=== PATIENT | male | born 1995 | race African-American/Black ===

== ENCOUNTER 2017-08-21 10:00 | Emergency (ER) | payer OTHER ==
[2017-08-21] MEDS ORDERED: MAG HYDROX/AL HYDROX/SIMETH SUSP 30 ML UDCUP PO ONE (10:14)
[2017-08-21 10:29] LABS: ABSOLUTE EOSINOPHILS # (AUTO) 0.1 10^3/uL (0.0-0.6); ABSOLUTE LYMPHOCYTES (AUTO) 2.1 10^3/uL (0.5-4.7); ABSOLUTE MONOCYTES (AUTO) 0.3 10^3/uL (0.1-1.4); ABSOLUTE NEUT (AUTO) 1.4 10^3/uL (1.7-8.2); BASOPHILS % (AUTO) 0.4 % (0-2); HEMATOCRIT 44.6 % (37.9-51.0); HEMOGLOBIN 15.3 g/dL (13.5-17.0); LYMPHOCYTES % (AUTO) 54.3 % (13-45); MEAN CORPUSCULAR HEMOGLOBIN 28.7 pg (27.0-33.4); MEAN CORPUSCULAR HGB CONC 34.4 g/dL (32.0-36.0); MEAN CORPUSCULAR VOLUME 84 fl (80-97); MONOCYTES % (AUTO) 6.9 % (3-13); PLATELET COUNT 160 10^3/uL (150-450); RED BLOOD COUNT 5.34 10^6/uL (4.35-5.55); RED CELL DISTRIBUTION WIDTH 13.2 % (11.5-14.0); SEGMENTED NEUTROPHILS % (AUTO) 36.4 % (42-78); TOTAL CELLS COUNTED % (AUTO) 100 %; WHITE BLOOD COUNT 3.8 10^3/uL (4.0-10.5)
[2017-08-21] MEDS ORDERED: ONDANSETRON 4 MG TAB.RAPDIS PO ONE (10:58)
[2017-08-21 10:59] LABS: ALANINE AMINOTRANSFERASE 45 U/L (21-72); ALBUMIN 4.4 g/dL (3.5-5.0); ALKALINE PHOSPHATASE 55 U/L (38-126); ANION GAP 9 (5-19); ASPARTATE AMINO TRANSFERASE 28 U/L (17-59); BILIRUBIN,DIRECT 0.3 mg/dL (0.0-0.4); BILIRUBIN,TOTAL 0.4 mg/dL (0.2-1.3); BLOOD UREA NITROGEN 16 mg/dL (7-20); CALCIUM 9.6 mg/dL (8.4-10.2); CARBON DIOXIDE 30 mmol/L (22-30); CHLORIDE 105 mmol/L (98-107); GLUCOSE 91 mg/dL (75-110); LIPASE 106.2 U/L (23-300); POTASSIUM 4.5 mmol/L (3.6-5.0); SODIUM 144.3 mmol/L (137-145); TOTAL PROTEIN 7.3 g/dL (6.3-8.2)
--- NOTE | 2017-08-21 11:02 | ER Document Report ---
ED Medical Screen (RME) - General Chief Complaint: Epigastric Pain Stated Complaint: STOMACH ACHE Time Seen by Provider: 08/21/17 10:14 Notes: Patient states that for several days he has had epigastric pain with bloating. He states he has tried nausea pills [id number] that have relieved his symptoms. Patient appears to have epigastric and right upper quadrant pain on exam. No vomiting or diarrhea. Initially patient was given some Maalox in triage but this did not relieve his symptoms. TRAVEL OUTSIDE OF THE [place] IN LAST 30 DAYS: No - Related Data Allergies/Adverse Reactions: No Known Allergies Allergy (Unverified 08/21/17 10:02) Past Medical History - Social History Chew tobacco use (# tins/day): No Frequency of alcohol use: Occasional Drug Abuse: Marijuana Renal/ Medical History: Denies: Hx Peritoneal Dialysis Past Surgical History: Reports: Hx Appendectomy, Hx Orthopedic Surgery Physical Exam - Vital signs Vitals: Temp Pulse Resp BP Pulse Ox 97.5 F 53 L 16 145/77 H 100 08/21/17 10:04 08/21/17 10:04 08/21/17 10:04 08/21/17 10:04 08/21/17 10:04 Course - Vital Signs Vital signs: Temp Pulse Resp BP Pulse Ox 97.5 F 53 L 16 145/77 H 100 08/21/17 10:04 08/21/17 10:04 08/21/17 10:04 08/21/17 10:04 08/21/17 10:04 - Laboratory Result Diagrams: 08/21/17 10:20 08/21/17 10:20 Laboratory results interpreted by me: 08/21/17 10:20 WBC 3.8 L Seg Neutrophils % 36.4 L Lymphocytes % 54.3 H Absolute Neutrophils 1.4 L
--- NOTE | 2017-08-21 11:45 | RADIOLOGY REPORT (SQ) ---
EXAM DESCRIPTION: U/S ABDOMEN LIMITED W/O DOP COMPLETED DATE/TIME: 08/21/2017 11:35 am REASON FOR STUDY: ruq pain COMPARISON: None. TECHNIQUE: Dynamic and static grayscale images acquired of the abdomen and recorded on PACS. Additio nal selected color Doppler and spectral images recorded. LIMITATIONS: Study is limited due to overlying bowel gas P FINDINGS: PANCREAS: The pancreas could not be visualized overlying bowel gas LIVER: No masses. Echotexture normal. LIVER VASCULATURE: Normal directional flow of the main portal vein. GALLBLADDER: No stones. Normal wall thickness. No pericholecystic fluid. ULTRASOUND-DETECTED KIRBY'S SIGN: Negative. INTRAHEPATIC DUCTS AND COMMON DUCT: CBD and intrahepatic ducts normal caliber. No filling defects. INFERIOR VENA CAVA: Normal flow. AORTA: No aneurysm. RIGHT KIDNEY: 9.8 cm in length. Normal echogenicity. No solid or suspicious masses. No hydrone phrosis. No calcifications. PERITONEAL AND RIGHT PLEURAL SPACE: No ascites or effusions. OTHER: No other significant findings. IMPRESSION: The somewhat limited study as noted above. No significant intra- abdominal abnormalitie s were identified. TECHNICAL DOCUMENTATION: JOB ID: [id number] [employer]- All Rights Reserved Reading location - IP/workstation name: [email or web address]
--- NOTE | 2017-08-21 11:56 | ER Document Report ---
ED GI/ - General Chief Complaint: Epigastric Pain Stated Complaint: STOMACH ACHE Time Seen by Provider: 08/21/17 10:14 Mode of Arrival: Ambulatory Information source: Patient Notes: 22 yo normally healthy, occ. smoker, occ. etoh, marijuana, male in school at [employer] c/o upper midline abd. pain on saturday while at home, started as a ache. Got worse sat. night, constant since, did go away once, but recurred 10 minutes later after OTC chewable antacid. Large BM soft this am. [place] stool last night. No hx GERD, IBS. Past 5 months-increased grumbling. No n/v/d, constipation, no blood or black. Appendectomy 2009. TRAVEL OUTSIDE OF THE [place] IN LAST 30 DAYS: No - Related Data Allergies/Adverse Reactions: No Known Allergies Allergy (Unverified 08/21/17 10:02) Past Medical History - General Information source: Patient - Social History Smoking Status: Current Every Day Smoker Chew tobacco use (# tins/day): No Frequency of alcohol use: Occasional Drug Abuse: Marijuana Lives with: Spouse/Significant other Family History: Reviewed & Not Pertinent Patient has suicidal ideation: No Patient has homicidal ideation: No - Medical History Medical History: Negative Renal/ Medical History: Denies: Hx Peritoneal Dialysis Past Surgical History: Reports: Hx Appendectomy, Hx Orthopedic Surgery Review of Systems - Review of Systems Constitutional: No symptoms reported EENT: No symptoms reported Cardiovascular: No symptoms reported Respiratory: No symptoms reported Gastrointestinal: See HPI Genitourinary: No symptoms reported Male Genitourinary: No symptoms reported Musculoskeletal: No symptoms reported Skin: No symptoms reported Hematologic/Lymphatic: No symptoms reported Neurological/Psychological: No symptoms reported Physical Exam - Vital signs Vitals: Temp Pulse Resp BP Pulse Ox 97.5 F 53 L 16 145/77 H 100 08/21/17 10:04 08/21/17 10:04 08/21/17 10:04 08/21/17 10:04 08/21/17 10:04 Interpretation: Normal - General General appearance: Appears well, Alert - HEENT Head: Normocephalic, Atraumatic Eyes: Normal Conjunctiva: Normal Pupils: PERRL Pharynx: Normal Neck: Supple. No: Lymphadenopathy - Respiratory Respiratory status: No respiratory distress Chest status: Nontender Breath sounds: Normal Chest palpation: Normal - Cardiovascular Rhythm: Regular Heart sounds: Normal auscultation Murmur: No - Abdominal Inspection: Normal Distension: No distension Bowel sounds: Normal Tenderness: Tender - minimal ubove umbilicus Organomegaly: No organomegaly - Back Back: Normal, Nontender. No: CVA tenderness - Extremities General upper extremity: Normal inspection, Nontender, Normal color, Normal ROM , Normal temperature General lower extremity: Normal inspection, Nontender, Normal color, Normal ROM , Normal temperature, Normal weight bearing. No: Suhail's sign - Neurological Neuro grossly intact: Yes Cognition: Normal Orientation: AAOx4 [place] Coma Scale Eye Opening: Spontaneous [place] Coma Scale Verbal: Oriented [place] Coma Scale Motor: Obeys Commands [place] Coma Scale Total: 15 Speech: Normal Motor strength normal: LUE, RUE, LLE, RLE Sensory: Normal - Psychological Associated symptoms: Normal affect, Normal mood - Skin Skin Temperature: Warm Skin Moisture: Dry Skin Color: Normal Course - Re-evaluation Re-evalutation: 08/21/17 12:43 labs normal, EKG NSR, no ectopy, trop I negative. Minimally tender upper umbilicus. US-Normal. Will send home and have patient follow-up if worsening pain gave him copies of all the lab work, imaging, and EKG. - Vital Signs Vital signs: Temp Pulse Resp BP Pulse Ox 98.7 F 53 L 20 134/72 H 100 08/21/17 12:52 08/21/17 10:04 08/21/17 12:51 08/21/17 12:52 08/21/17 12:51 - Laboratory Result Diagrams: 08/21/17 10:20 08/21/17 10:20 Laboratory results interpreted by me: 08/21/17 10:20 WBC 3.8 L Seg Neutrophils % 36.4 L Lymphocytes % 54.3 H Absolute Neutrophils 1.4 L Discharge - Discharge Clinical Impression: Upper abdominal pain Condition: Good Disposition: HOME, SELF-CARE Instructions: Evaluation of Upper Abdominal Pain ([facility]) Additional Instructions: to er if worse See staff nuclear weapons officer if persists Plenty of fluids Copy of labs, imaging, EKG given to you Forms: Return to School Referrals: BERNADETTE RENDON MD [ACTIVE STAFF] - Follow up as needed
[2017-08-21] MEDS ORDERED: LANSOPRAZOLE 30 MG TAB.RAP.DR PO ONE (12:27)
[2017-08-21 12:54] VITALS: BP 134/72
--- NOTE | 2017-08-21 22:53 | EKG REPORT ---
SEVERITY:- ABNORMAL ECG - SINUS RHYTHM ST ELEVATION SUGGESTS EARLY REPOLARIZATION VS PERICARDITIS : Confirmed by: Katie Hdz 21-Aug-2017 22:53:16
--- NOTE | 2017-08-21 22:55 | EKG REPORT ---
SEVERITY:- ABNORMAL ECG - SINUS RHYTHM BORDERLINE T ABNORMALITIES, INFERIOR LEADS ST ELEVATION SUGGESTS EARLY REPOLARIZATION VS PERICARDITIS : Confirmed by: Katie Hdz 21-Aug-2017 22:53:58
== END 2017-08-21 12:55 | disposition home or self-care (01) ==
LOC: ER 10:00
DX: R10.13 Epigastric pain (principal); R10.815 Periumbilic abdominal tenderness; R19.5 Other fecal abnormalities; F17.200 Nicotine dependence, unspecified, uncomplicated; F12.10 Cannabis abuse, uncomplicated; Z90.49 Acquired absence of other specified parts of digestive tract
CPT/HCPCS: 36415; 76705; 80053; 83690; 84484; 85025; 93005; 93010; 99284

== ENCOUNTER 2018-01-25 13:36 | Emergency (ER) | payer OTHER ==
[2018-01-25 13:40] VITALS: BP 152/87
[2018-01-25] MEDS ORDERED: LOPERAMIDE HCL 2 MG CAPSULE PO ONE (14:03)
[2018-01-25] MEDS ORDERED: LIDOCAINE 2% VISCOUS SOLN 20 ML UDCUP PO ONE (14:05)
[2018-01-25] MEDS ORDERED: PENICILLIN G BENZATHINE 1.2 MILLION UNIT/2 ML DISP.SYRIN IM ONE (14:05)
--- NOTE | 2018-01-25 14:08 | ER Document Report ---
HPI - HPI Patient complains to provider of: Sore throat Onset: Other - 2 days Onset/Duration: Persistent Quality of pain: Achy Pain Level: 5 Context: Patient complains of sore throat for the past 2 days. Patient also complains of diarrhea 4 episodes today. Patient suspects that he may have had a fever although has not measured it with a thermometer. Associated Symptoms: Diarrhea, Fever, Sore throat. denies: Nonproductive cough , Productive cough, Earache, Nausea, Vomiting Exacerbated by: Denies Relieved by: Denies Similar symptoms previously: Yes Recently seen / treated by doctor: No - ROS ROS below otherwise negative: Yes Systems Reviewed and Negative: Yes All other systems reviewed and negative - CONSTITUTIONAL Constitutional: DENIES: Fever, Chills - EENT EENT: REPORTS: Sore Throat - 2 days. DENIES: Ear Pain - NEURO Neurology: DENIES: Headache - RESPIRATORY Respiratory: DENIES: Coughing - GASTROINTESTINAL Gastrointestinal: REPORTS: Diarrhea. DENIES: Abdominal Pain, Nausea, Patient vomiting - URINARY Urinary: DENIES: Urgency - DERM Skin Color: Normal Skin Problems: None Past Medical History - General Information source: Patient - Social History Smoking Status: Never Smoker Frequency of alcohol use: None Drug Abuse: Marijuana Occupation: None Family History: Reviewed & Not Pertinent Patient has suicidal ideation: No Patient has homicidal ideation: No - Medical History Medical History: Negative Renal/ Medical History: Denies: Hx Peritoneal Dialysis Past Surgical History: Reports: Hx Appendectomy, Hx Orthopedic Surgery Vertical Provider Document - CONSTITUTIONAL Agree With Documented VS: Yes Exam Limitations: No Limitations General Appearance: WD/WN, No Apparent Distress - INFECTION CONTROL TRAVEL OUTSIDE OF THE [place] IN LAST 30 DAYS: No - HEENT HEENT: Atraumatic, Normocephalic, Pharyngeal Tenderness, Pharyngeal Erythema. negative: Pharyngeal Exudate - NECK Neck: Lymphadenopathy-Left, Lymphadenopathy-Right - RESPIRATORY Respiratory: Breath Sounds Normal, No Respiratory Distress - CARDIOVASCULAR Cardiovascular: Regular Rate, Regular Rhythm, No Murmur - GI/ABDOMEN Gastrointestinal: Abdomen Soft - BACK Back: Normal Inspection - MUSCULOSKELETAL/EXTREMETIES Musculoskeletal/Extremeties: MAEW - NEURO Level of Consciousness: Awake, Alert, Appropriate Motor/Sensory: No Motor Deficit - DERM Integumentary: Warm, Dry, No Rash Course - Re-evaluation Re-evalutation: 01/25/18 Patient presents with symptoms consistent with tonsillitis, no potential airway compromise, 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 Patient nontoxic in appearance. Good return precautions given, patient agreeable with this plan of care. - Vital Signs Vital signs: Temp Pulse Resp BP Pulse Ox 99.3 F 69 16 152/87 H 100 01/25/18 13:39 01/25/18 13:39 01/25/18 13:39 01/25/18 13:39 01/25/18 13:39 Discharge - Discharge Clinical Impression: Tonsillitis Diarrhea Qualifiers: Diarrhea type: unspecified type Qualified Code(s): R19.7 - Diarrhea, unspecified Condition: Stable Disposition: HOME, SELF-CARE Instructions: Antibiotic Shot ([facility]), Diarrhea, Nonspecific ([facility]), Tonsillitis ( [facility]) Additional Instructions: Return immediately for any new or worsening symptoms Followup with your primary care provider, call tomorrow to make a followup appointment Take your diclofenac that you have at home as prescribed Referrals: [facility] [Provider Group] - Follow up as needed
== END 2018-01-25 14:43 | disposition home or self-care (01) ==
LOC: ER 13:36
DX: J03.90 Acute tonsillitis, unspecified (principal); R19.7 Diarrhea, unspecified; R50.9 Fever, unspecified
CPT/HCPCS: 99282; 96372; 87070; J3490; J0561